=== PATIENT | female | born 1980 | race Caucasian/White ===

== ENCOUNTER 2020-08-01 06:03 | Inpatient (IN) ==
[2020-08-01] MEDS ORDERED: cefOXitin 2,000 MG in Water for inj. (sterile) 20 ML IVP ONE (06:24)
[2020-08-01] MEDS ORDERED: *HR* Rocuronium Bromide 50 MG/5 ML VIAL ONE (06:34)
[2020-08-01] MEDS ORDERED: Lidocaine -MPF 2% 2 ML VIAL ONE (06:34)
[2020-08-01] MEDS ORDERED: Dexamethasone 4 MG/ML VIAL ONE (06:34)
[2020-08-01] MEDS ORDERED: Ondansetron 4 MG/2 ML VIAL ONE (06:34)
[2020-08-01] MEDS ORDERED: *HR* Succinylcholine 200 MG/10 ML VIAL IVP ONE (06:34)
[2020-08-01] MEDS ORDERED: *HR* Propofol 200 MG/20 ML VIAL IVP ONE ×2 (06:37)
[2020-08-01] MEDS: Ringers Solution, Lactated 1,000 ML IVC SCH ×2 (06:51→14:28)
[2020-08-01] MEDS ORDERED: Famotidine 20 MG/2 ML VIAL IVP ONE (07:00)
[2020-08-01] MEDS ORDERED: Acetaminophen IV 1,000 MG/100 ML INFUS..BTL IVPB ONE (07:00)
[2020-08-01] MEDS ORDERED: Pregabalin 75 MG CAPSULE PO ONE (07:00)
[2020-08-01] MEDS ORDERED: Scopolamine Patch 1.5 MG PATCH.TD72 TD ONE (07:00)
[2020-08-01] MEDS ORDERED: *HR* Midazolam HCl 2 MG/2 ML VIAL ONE (07:16)
[2020-08-01] MEDS ORDERED: *HR* FentaNYL (PF) 100 MCG/2 ML VIAL ONE (07:16)
[2020-08-01] MEDS ORDERED: *HR* Labetalol 20 MG/4 ML SYRINGE IVP PRN (08:30)
[2020-08-01] MEDS ORDERED: *HR* Promethazine 25 MG/ML VIAL IVPB PRN (08:30)
[2020-08-01] MEDS ORDERED: *HR* HYDROmorphone 2 MG TABLET PO PRN (08:30)
[2020-08-01] MEDS ORDERED: Promethazine 6.25 MG in Water for inj. (sterile) 20 ML IVPB PRN (08:30)
[2020-08-01] MEDS ORDERED: EPHEDrine 50 MG/ML VIAL ONE (08:32)
[2020-08-01] MEDS ORDERED: Neostigmine Methylsulfate 3 MG/3 ML SYRINGE ONE (08:46)
[2020-08-01] MEDS ORDERED: *HR* HYDROMORPHONE 2 MG/ML VIAL ONE (08:52)
[2020-08-01] MEDS ORDERED: Ondansetron 4 MG/2 ML VIAL IVP PRN (09:03)
[2020-08-01] MEDS ORDERED: Naloxone 0.4 MG/ML INJ IVP PRN (09:03)
[2020-08-01] MEDS: *HR* HYDROmorphone (PF) 1 MG/ML SYRINGE IVP PRN ×4 (09:19→09:53)
[2020-08-01] MEDS: *HR* OxyCODONE Immed Rel 5 MG TABLET PO PRN ×2 (09:21→09:36)
[2020-08-01] MEDS ORDERED: *HR* HYDROmorphone (PF) 1 MG/ML SYRINGE IVP PRN (09:56)
[2020-08-01] MEDS: Ketorolac 30 MG/ML VIAL IVP SCH ×2 (14:29→19:55)
[2020-08-01] MEDS: *HR* HYDROcodone/Acet 5/325 mg TABLET PO PRN (17:14)
[2020-08-02] MEDS: *HR* HYDROcodone/Acet 5/325 mg TABLET PO PRN ×2 (03:49→13:23)
[2020-08-02 06:39] LABS: Basophils % 0.1 %; Eosinophils # 0.1 K/mcL (0.0-0.6); Eosinophils % 0.3 %; Hematocrit 38.1 % (35.3-44.9); Hemoglobin 12.2 g/dL (11.5-15.4); Immature Granulocytes % 0.4 % (0-4); Lymphocytes # 4.4 K/mcL (0.6-4.6); Mean Corpuscular Volume 93.6 fL (83.0-100.0); Mean Platelet Volume 10.4 fL (9.4-12.4); Monocytes # 1.8 K/mcL (0.0-1.3); Monocytes % 8.8 %; Neutrophils # 13.7 K/mcL (1.6-8.9); Platelet Count 189 K/mcL (140-400); Red Blood Count 4.07 M/mcL (3.82-4.97); Red Cell Distribution Width 12.7 % (11.5-14.5); Segmented Neutrophils % 68.4 %; White Blood Count 20.1 K/mcL (4.3-11.1)
[2020-08-02 07:08] LABS: BUN/Creatinine Ratio 18 (6-26); Blood Urea Nitrogen 9 mg/dL (6-20); eGFR For African Americans > 60 (> 60); eGFR For Non-African Americans > 60 (> 60)
[2020-08-02 08:10] VITALS: BP 104/63
[2020-08-02] MEDS: Ketorolac 30 MG/ML VIAL IVP SCH (08:51)
== END 2020-08-02 14:26 | disposition home or self-care (01) | DRG 519 ==
LOC: SAMDAY 06:03 → 1NENUOBS 10:56
PROVIDERS: ADMIT Obstetrics & Gynecology; ATTEND Obstetrics & Gynecology